=== PATIENT | female | born 1965 | race Caucasian/White ===

== ENCOUNTER → 2018-06-19 10:11 | Outpatient (CLI) | payer BC, SELFPAY ==
[2018-06-19 12:07] LABS: Alanine Aminotransferase 22 U/L (12-78); Albumin Level 3.9 gm/dL (3.4-5.0); Alkaline Phosphatase 66 U/L (46-116); Anion Gap 14.5 mEq/L (5-15); Aspartate Amino Transferase 10 U/L (15-37); Bilirubin,Direct 0.1 mg/dL (0.0-0.2); Bilirubin,Indirect 0.3 mg/dL (0.0-0.9); Bilirubin,Total 0.4 mg/dL (0.2-1.0); Blood Urea Nitrogen 16 mg/dL (7-18); Calcium 9.1 mg/dL (8.5-10.1); Carbon Dioxide 27 mmol/L (21.0-32.0); Chloride 106 mmol/L (98-107); Chol/HDL Ratio 3.5 (1-3.5); Cholesterol 216 mg/dL (140-200); Creatinine,Serum 0.84 mg/dL (0.55-1.02); Estimated Glomerular Filt Rate 71 ml/min (>60); GFR (African American) 86 ML/MIN (>60); Glucose 127 mg/dL (74-106); HDL Cholesterol 61 mg/dL (29-89); LDL Cholesterol 129 mg/dL (0-130); Potassium 4.5 mmoL/L (3.5-5.1); Sodium 143 mmol/L (136-145); Total Protein,Serum 6.6 gm/dL (6.4-8.2); Triglycerides 132 mg/dL (30-200); VLDL Cholesterol 26 mg/dL (0-40)
== END ==
PROVIDERS: PCP Emergency Medicine; Visit Provider Physician Assistant
DX: E78.5 Hyperlipidemia, unspecified (principal); E11.9 Type 2 diabetes mellitus without complications; F17.200 Nicotine dependence, unspecified, uncomplicated; I10 Essential (primary) hypertension; R60.9 Edema, unspecified; R94.31 Abnormal electrocardiogram [ECG] [EKG]
CPT/HCPCS: 36415; 80048; 80061; 80076

== ENCOUNTER → 2018-12-25 09:19 | Outpatient (CLI) | payer BC, SELFPAY ==
[2018-12-25 11:07] LABS: Alanine Aminotransferase 27 U/L (12-78); Albumin Level 3.9 gm/dL (3.4-5.0); Alkaline Phosphatase 75 U/L (46-116); Aspartate Amino Transferase 8 U/L (15-37); Bilirubin,Direct 0.1 mg/dL (0.0-0.2); Bilirubin,Indirect 0.3 mg/dL (0.0-0.9); Bilirubin,Total 0.4 mg/dL (0.2-1.0); Chol/HDL Ratio 2.8 (1-3.5); Cholesterol 160 mg/dL (140-200); HDL Cholesterol 58 mg/dL (29-89); LDL Cholesterol 83 mg/dL (0-130); Total Protein,Serum 6.6 gm/dL (6.4-8.2); Triglycerides 95 mg/dL (30-200); VLDL Cholesterol 19 mg/dL (0-40)
== END ==
PROVIDERS: Visit Provider Urology
DX: E11.9 Type 2 diabetes mellitus without complications (principal); E78.49 Other hyperlipidemia; I10 Essential (primary) hypertension; R60.9 Edema, unspecified; F17.200 Nicotine dependence, unspecified, uncomplicated
CPT/HCPCS: 36415; 80061; 80076

== ENCOUNTER → 2020-05-12 15:44 | Outpatient (CLI) | payer BC, SELFPAY ==
[2020-05-17 10:34] LABS: Covid-19 Nasal PCR Sendout Lex NOT DETECTED
== END ==
PROVIDERS: PCP Emergency Medicine; Visit Provider Nurse Practitioner Family
DX: Z03.818 Encounter for observation for suspected exposure to other biological agents ruled out (principal)
CPT/HCPCS: U0004

== ENCOUNTER → 2020-09-29 08:46 | Outpatient (CLI) | payer BC, SELFPAY ==
--- NOTE | 2020-09-29 09:05 | CA_ITS ---
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 2D Dimensions LVDd 5.36 cm LVEF (Visual) 67.00 % LVDs 3.35 cm Aortic Root 2.42 cm Left Atrium 3.56 cm LVOT 1.67 cm (M/F) 1.5-2.5 M-Mode Dimensions RVDd 2.15 cm (0.9-2.6) LA Diam 3.33 cm (1.9-4.0) LVDd 5.23 cm (3.5-5.7) Ao Diam 2.89 cm (2.0-3.7) IVSd 0.80 cm (0.6-1.1) PWd 0.80 cm (0.6-1.1) EPSs 0.67 cm EDV (Teich) 131.20 mL TAPSE 2.13 (<1.7) LV Diastology E Decel Time 160.00 (160-240 msec) E/A Ratio 0.88 MED E' 6.60 (< 7 cm/sec) MED A' 8.60 cm/s E'/MED E' Ratio 9.94 (>14) LAT E' 9.20 (<10 cm/sec) LAT A' 10.00 cm/s E/LAT E' Ratio 7.13 (>14) Aortic Valve AO Peak GR. 5.70 mmHg Mitral Valve MV E Max Darnell. 66.00 (40-130 cm/s) MV A Velocity 75.00 (40-130 cm/s) E/A Ratio 0.88 MV Decel. Time 160.00 (160-240 ms) MV PHT 47.00 ms Pulmonary Valve PV Peak Velocity 85.00 (50-150 cm/s) Tricuspid Valve TR P. Velocity 223.00 cm/s RAP Estimate 10.00 mmHg RVSP 29.90 mmHg Left Ventricle Left atrium is mildly enlarged, left ventricle is normal size, mild concentric left ventricular hypertrophy, visually estimated ejection fraction 55% with no regional wall motion abnormality, grade 1 diastolic dysfunction seen without tissue Doppler evidence of raise left atrial pressure. Right Ventricle Right atrium and right ventricle are normal size and contractility. Aortic Valve Aortic valve is minimally thickened and fibrosed, there is no aortic stenosis or aortic insufficiency. Mitral Valve Mitral valve is grossly normal, there is trace mitral regurgitation. Tricuspid Valve Tricuspid is grossly normal, there is trace tricuspid regurgitation, tricuspid regurgitation jet velocity is inadequate for calculation of the right ventricular systolic pressure. Pulmonic Valve Pulmonic valve is poorly visualized. Great Vessels Aortic root is normal size. Pericardium No significant pericardial effusion noted. Conclusion 1. Mildly enlarged left atrium, normal left ventricular size, mild concentric left ventricular hypertrophy, visually estimated ejection fraction 55% with no regional wall motion abnormality, grade 1 diastolic dysfunction seen without tissue Doppler evidence of raise left atrial pressure. 2. Trace mitral and tricuspid regurgitation. 3. No significant pericardial effusion. Electronically signed by : Unruly Hearn, 09/30/2020 16:40:24
[2020-09-29 10:14] LABS: Alanine Aminotransferase 18 U/L (12-78); Aspartate Amino Transferase 21 U/L (14-36); Bilirubin,Unconjugated 0.3 mg/dL (0.0-1.1)
[2020-09-29 10:15] LABS: Albumin Level 4.4 g/dl (3.5-5.0); Alkaline Phosphatase 70 U/L (38-126); Bilirubin,Direct 0.2 mg/dl (0.0-0.4); Bilirubin,Indirect 0.3 mg/dL (0.0-0.9); Bilirubin,Total 0.5 mg/dl (0.2-1.3); Chol/HDL Ratio 2.9 (1-3.5); Cholesterol 231 mg/dl (140-200); HDL Cholesterol 79 mg/dl (40-60); Triglycerides 130 mg/dl (30-150); VLDL Cholesterol 26 mg/dL (0-40)
== END ==
PROVIDERS: PCP Emergency Medicine; Visit Provider Nurse Practitioner Family
DX: I10 Essential (primary) hypertension (principal); E78.2 Mixed hyperlipidemia; R60.0 Localized edema; F17.200 Nicotine dependence, unspecified, uncomplicated
CPT/HCPCS: 80061; 80076; 93306

== ENCOUNTER → 2020-11-03 12:29 | Outpatient (CLI) | payer BC, SELFPAY ==
--- NOTE | 2020-11-03 12:32 | XR_ITS ---
PROCEDURE: XR HIP RT 2-3V W/PELVIS CLINICAL INDICATION: right hip pain Left hip pain COMPARISON: CR XR HIP LT 2-3V W/PELVIS from 11/03/2020 FINDINGS: No fracture or dislocation. No lytic or blastic change. There is slight decrease in the hip joint space on both sides suggesting minimal osteoarthritic change. No significant osteosclerosis or osteophyte formation. There are degenerative changes in the lower lumbar spine. Unremarkable SI joints IMPRESSION: Minimal osteoarthritic change of the hips Dictated by: Ab Hutton MD 11/03/2020 16:34 Ab Hutton MD in [place] 11/03/2020 16:34
--- NOTE | 2020-11-03 12:32 | XR_ITS ---
PROCEDURE: XR KNEE RT 4V CLINICAL INDICATION: right knee pain COMPARISON: CR [id number] KNEE-3 VIEWS-RT from 08/23/2016 CR [id number] KNEE-4 OR 5 VIEWS-LT from 10/18/2016 FINDINGS: There are severe osteoarthritic changes of the medial compartment and patellofemoral joint which appears worse at the medial compartment. Calcific density is present overlying the soft tissues along the distal femur medially and could represent a loose body within the suprapatellar effusion. There is a small suprapatellar effusion noted. IMPRESSION: Severe osteoarthritis with knee joint effusion and possible loose body. The osteoarthritis appears somewhat worse Dictated by: Ab Hutton MD 11/03/2020 16:44 Ab Hutton MD in [place] 11/03/2020 16:44
--- NOTE | 2020-11-03 12:32 | XR_ITS ---
PROCEDURE: XR KNEE LT 4V CLINICAL INDICATION: left knee pain; weightbearing COMPARISON: CR [id number] KNEE-3 VIEWS-RT from 08/23/2016 CR [id number] KNEE-4 OR 5 VIEWS-LT from 10/18/2016 FINDINGS: No fracture or dislocation. No lytic or blastic change. There is normal mineralization. There are moderate to severe osteoarthritic changes of the medial compartment and patellofemoral joint. There is a suprapatellar effusion. Other findings:None. IMPRESSION: Moderate to severe osteoarthritis with suprapatellar effusion. The osteoarthritis appears worse in the medial compartment compared to the previous exam Dictated by: Ab Hutton MD 11/03/2020 16:45 Ab Hutton MD in [place] 11/03/2020 16:45
== END ==
PROVIDERS: PCP Emergency Medicine; Visit Provider Orthopaedic Surgery
DX: M25.551 Pain in right hip (principal); M25.561 Pain in right knee; M25.552 Pain in left hip; M25.562 Pain in left knee
CPT/HCPCS: 73502; 73564

== ENCOUNTER → 2022-04-10 13:32 | Outpatient (CLI) | payer BC, SELFPAY | PROVIDERS: PCP Emergency Medicine; Visit Provider Emergency Medicine | DX: U07.1 COVID-19 (principal) | CPT/HCPCS: C9803; U0003; U0005 ==

== ENCOUNTER → 2022-05-31 14:18 | Outpatient (CLI) | payer BC, SELFPAY ==
[2022-05-31 19:47] LABS: Amphetamine/Metha Screen,Urine Negative ng/ml (<1000); Barbiturates Screen,Urine Negative ng/ml (<200)
[2022-05-31 19:48] LABS: Benzodiazepines Screen,Urine Negative ng/ml (<200)
[2022-05-31 19:49] LABS: Cannabinoid Screen,Urine Negative ng/ml (<50); Cocaine Screen,Urine Negative ng/ml (<300)
[2022-05-31 19:50] LABS: Methadone Screen,Urine Negative ng/ml (<300)
[2022-05-31 19:51] LABS: Opiate Screen,Urine Negative ng/ml (<300)
[2022-05-31 19:52] LABS: Phencyclidine Screen,Urine Negative ng/ml (<25)
== END ==
PROVIDERS: PCP Emergency Medicine; Visit Provider Emergency Medicine
DX: Z76.0 Encounter for issue of repeat prescription (principal); Z79.899 Other long term (current) drug therapy
CPT/HCPCS: 80305

== ENCOUNTER → 2022-09-27 10:15 | Outpatient (CLI) | payer BC, SELFPAY ==
[2022-09-27 12:40] LABS: Alanine Aminotransferase 14 U/L (12-78); Albumin Level 4.1 g/dl (3.5-5.0); Alkaline Phosphatase 58 U/L (38-126); Aspartate Amino Transferase 17 U/L (14-36); Bilirubin,Direct 0.1 mg/dl (0.0-0.4); Bilirubin,Indirect 0.3 mg/dL (0.0-0.9); Bilirubin,Total 0.4 mg/dl (0.2-1.3); Bilirubin,Unconjugated 0.3 mg/dL (0.0-1.1); Chol/HDL Ratio 3.2 (1-3.5); Cholesterol 193 mg/dl (140-200); HDL Cholesterol 61 mg/dl (40-60); Total Protein,Serum 6.3 g/dl (6.3-8.2); Triglycerides 143 mg/dl (30-150); VLDL Cholesterol 29 mg/dL (0-40)
[2022-09-27 12:52] LABS: Direct LDL Cholesterol 92.17 mg/dL (100-129)
== END ==
PROVIDERS: PCP Emergency Medicine; Visit Provider Nurse Practitioner Family
DX: E78.2 Mixed hyperlipidemia (principal)
CPT/HCPCS: 36415; 80061; 80076

== ENCOUNTER → 2023-05-02 12:02 | Outpatient (CLI) | payer BC, SELFPAY ==
--- NOTE | 2023-05-02 12:05 | XR_ITS ---
FINAL REPORT CLINICAL HISTORY: bilateral knee pain COMPARISON: 11/03/2020 FINDINGS: Left knee Three views were obtained. There is no acute fracture or dislocation. There are moderate and severe degenerative changes with severe medial compartment narrowing. No soft tissue abnormality is identified. IMPRESSION: Degenerative changes as above. Reviewed, Interpreted and Dictated by Cory Cordova III, MD Transcribed by Elaine Chairez Authenticated and [facility]
--- NOTE | 2023-05-02 12:05 | XR_ITS ---
FINAL REPORT CLINICAL HISTORY: Rt Knee pain COMPARISON: 11/03/2020 FINDINGS: Right knee Three views were obtained. There is no acute fracture or dislocation. There are moderate and severe degenerative changes. There is a probable loose body adjacent to the lateral distal femur. Moderate joint effusion is identified. IMPRESSION: Degenerative changes and moderate joint effusion. Probable loose body. Reviewed, Interpreted and Dictated by Cory Cordova III, MD Transcribed by Elaine Chairez Authenticated and [facility]
== END ==
LOC: RAD 12:02
PROVIDERS: PCP Emergency Medicine; Visit Provider Orthopaedic Surgery
DX: M25.562 Pain in left knee (principal); M25.561 Pain in right knee
CPT/HCPCS: 73562

== ENCOUNTER → 2023-05-09 12:37 | Outpatient (CLI) | payer BC, SELFPAY ==
[2023-05-09 13:09] LABS: Basophils # 0.1 K/mm3 (0-0.2); Basophils % 0.7 % (0.1-2.0); Eosinophils # 0.2 K/mm3 (0.0-0.4); Eosinophils % 3.2 % (0.1-12.0); Hematocrit 48.1 % (37.0-47.0); Hemoglobin 15.2 g/dL (12.2-16.2); Lymphocytes # 2.5 K/mm3 (0.7-4.5); Lymphocytes % 35.5 % (10-50); Mean Corpuscular HGB Conc 31.6 g/dL (31.8-35.4); Mean Corpuscular Hemoglobin 29.9 pg (27.0-31.2); Mean Corpuscular Volume 94.7 fl (81-99); Mean Platelet Volume 7.9 fl (7.4-10.4); Monocytes # 0.4 K/mm3 (0.1-1.0); Monocytes % 5.2 % (1.7-9.3); Neutrophils # 3.8 K/mm3 (1.8-7.8); Neutrophils % 55.4 % (37.0-80.0); Platelet Count 270 K/mm3 (142-424); Red Blood Count 5.08 M/mm3 (4.20-5.40); Red Cell Distribution Width 13.2 % (11.5-17.5); White Blood Count 6.9 K/mm3 (4.8-10.8)
[2023-05-09 13:47] LABS: Anion Gap 10.3 mEq/L (5-15); Blood Urea Nitrogen 15 mg/dl (7-17); Calcium 9.2 mg/dl (8.4-10.2); Carbon Dioxide 29 mmol/L (22.0-30.0); Chloride 106 mmol/L (98-107); Estimated Glomerular Filt Rate 57 ml/min (>60); GFR (African American) 69 ML/MIN (>60); Glucose 132 mg/dl (74-100); Potassium 4.3 mmoL/L (3.5-5.1); Sodium 141 mmol/L (136-145)
[2023-05-09 14:07] LABS: Free T4 (Free Thyroxine) 1.21 ng/dl (0.78-2.19)
[2023-05-09 14:22] LABS: Thyroid Stimulating Hormone 1.41 uIU/mL (0.465-4.68)
[2023-05-09 18:37] LABS: Hemoglobin A1C 5.6 % (4.0-6.0)
== END ==
PROVIDERS: PCP Emergency Medicine; Visit Provider Emergency Medicine
DX: E11.9 Type 2 diabetes mellitus without complications (principal); R53.83 Other fatigue; K59.00 Constipation, unspecified
CPT/HCPCS: 80048; 83036; 84439; 84443; 85025

== ENCOUNTER → 2023-08-22 23:12 | Outpatient (CLI) | payer BC, SELFPAY ==
[2023-08-22 20:06] LABS: Amphetamine/Metha Screen,Urine Negative ng/ml (<1000)
[2023-08-22 20:07] LABS: Barbiturates Screen,Urine Negative ng/ml (<200)
[2023-08-22 20:08] LABS: Benzodiazepines Screen,Urine Negative ng/ml (<200)
[2023-08-22 20:09] LABS: Cannabinoid Screen,Urine Negative ng/ml (<50)
[2023-08-22 20:10] LABS: Cocaine Screen,Urine Negative ng/ml (<300); Methadone Screen,Urine Negative ng/ml (<300)
[2023-08-22 20:11] LABS: Opiate Screen,Urine Negative ng/ml (<300)
[2023-08-22 20:12] LABS: Phencyclidine Screen,Urine Negative ng/ml (<25)
[2023-08-29 08:15] LABS: Opiates Negative ng/mL (Cutoff=100)
== END ==
LOC: LAB.DROPOF 23:13
PROVIDERS: PCP Nurse Practitioner Family; Visit Provider Nurse Practitioner Family
DX: M79.2 Neuralgia and neuritis, unspecified (principal); Z79.899 Other long term (current) drug therapy
CPT/HCPCS: 80307; 80361; G0480

== ENCOUNTER 2024-01-23 08:58 | Outpatient (CLI) | payer BC, SELFPAY ==
[2024-01-23 09:35] LABS: Basophils # 0.1 K/mm3 (0-0.2); Basophils % 1.6 % (0.1-2.0); Eosinophils # 0.2 K/mm3 (0.0-0.4); Hematocrit 46.7 % (37.0-47.0); Hemoglobin 14.9 g/dL (12.2-16.2); Lymphocytes # 2.6 K/mm3 (0.7-4.5); Mean Corpuscular HGB Conc 31.9 g/dL (31.8-35.4); Mean Corpuscular Volume 97.2 fl (81-99); Mean Platelet Volume 8.2 fl (7.4-10.4); Monocytes # 0.3 K/mm3 (0.1-1.0); Monocytes % 5.8 % (1.7-9.3); Neutrophils # 2.4 K/mm3 (1.8-7.8); Neutrophils % 42.6 % (37.0-80.0); Platelet Count 246 K/mm3 (142-424); Red Blood Count 4.81 M/mm3 (4.20-5.40); Red Cell Distribution Width 13.3 % (11.5-17.5); White Blood Count 5.6 K/mm3 (4.8-10.8)
[2024-01-23 10:31] LABS: Alanine Aminotransferase 18 U/L (12-78); Albumin Level 4.1 g/dl (3.5-5.0); Alkaline Phosphatase 53 U/L (38-126); Anion Gap 12.1 mEq/L (5-15); Aspartate Amino Transferase 22 U/L (14-36); Bilirubin,Direct 0.1 mg/dl (0.0-0.4); Bilirubin,Indirect 0.4 mg/dL (0.0-0.9); Bilirubin,Total 0.5 mg/dl (0.2-1.3); Bilirubin,Unconjugated 0.4 mg/dL (0.0-1.1); Blood Urea Nitrogen 15 mg/dl (7-17); Calcium 9.8 mg/dl (8.4-10.2); Carbon Dioxide 27 mmol/L (22.0-30.0); Chloride 107 mmol/L (98-107); Chol/HDL Ratio 2.5 (1-3.5); Cholesterol 237 mg/dl (140-200); Estimated Glomerular Filt Rate 74 ml/min (>60); GFR (African American) 89 ML/MIN (>60); Glucose 122 mg/dl (74-100); HDL Cholesterol 93 mg/dl (40-60); Magnesium 1.8 mg/dl (1.6-2.3); Potassium 4.1 mmoL/L (3.5-5.1); Sodium 142 mmol/L (136-145); Total Protein,Serum 6.3 g/dl (6.3-8.2); Triglycerides 120 mg/dl (30-150); VLDL Cholesterol 24 mg/dL (0-40)
[2024-01-23 10:42] LABS: Direct LDL Cholesterol 114.47 mg/dL (100-129)
[2024-01-23 10:46] LABS: Free T4 (Free Thyroxine) 1.03 ng/dl (0.78-2.19)
== END 2024-01-23 23:59 | disposition home or self-care (01) ==
LOC: LAB 08:59
PROVIDERS: Visit Provider Nurse Practitioner Family
DX: I10 Essential (primary) hypertension (principal); E78.5 Hyperlipidemia, unspecified; E11.9 Type 2 diabetes mellitus without complications; F17.200 Nicotine dependence, unspecified, uncomplicated; E66.9 Obesity, unspecified; Z68.35 Body mass index [BMI] 35.0-35.9, adult
CPT/HCPCS: 36415; 80048; 80061; 80076; 83735; 84439; 84443; 85025

== ENCOUNTER 2024-04-02 09:34 | Outpatient (CLI) | payer BC, SELFPAY ==
--- NOTE | 2024-04-02 09:39 | XR_ITS ---
FINAL REPORT CLINICAL HISTORY: knee pain COMPARISON: 11/03/2020 FINDINGS: Right knee Three views were obtained. There is no acute fracture or dislocation. There are moderate and severe degenerative changes, worst in the medial compartment. There is severe medial compartment narrowing. Small joint effusion is identified. Findings are similar to previous. IMPRESSION: Significant degenerative changes with small joint effusion, similar to previous. Reviewed, Interpreted and Dictated by Cory Cordova III, MD Transcribed by Elaine Chairez Authenticated and [facility]
--- NOTE | 2024-04-02 09:39 | XR_ITS ---
FINAL REPORT CLINICAL HISTORY: knee pain COMPARISON: 11/03/2020 FINDINGS: Left knee Three views were obtained. There is no acute fracture or dislocation. There are moderate and severe degenerative changes. There is severe medial compartment narrowing, progressed since previous. Large joint effusion is identified. IMPRESSION: Significant degenerative changes with large joint effusion. Reviewed, Interpreted and Dictated by Cory Cordova III, MD Transcribed by Elaine Chairez Authenticated and . [facility]
== END 2024-04-02 23:59 | disposition home or self-care (01) ==
LOC: RAD 09:36
PROVIDERS: Visit Provider Orthopaedic Surgery
DX: M17.0 Bilateral primary osteoarthritis of knee (principal); M25.562 Pain in left knee
CPT/HCPCS: 73562

== ENCOUNTER 2024-10-22 10:32 | Outpatient (CLI) | payer BC, SELFPAY ==
[2024-10-22 10:47] LABS: Basophils % 0.7 % (0.1-2.0); Eosinophils # 0.1 K/mm3 (0.0-0.4); Eosinophils % 1.6 % (0.1-12.0); Hematocrit 42.5 % (37.0-47.0); Lymphocytes # 2.4 K/mm3 (0.7-4.5); Lymphocytes % 42.1 % (10-50); Mean Corpuscular HGB Conc 32.9 g/dL (31.8-35.4); Mean Corpuscular Hemoglobin 30.4 pg (27.0-31.2); Mean Corpuscular Volume 92.2 fl (81-99); Mean Platelet Volume 9.4 fl (7.4-10.4); Monocytes # 0.5 K/mm3 (0.1-1.0); Monocytes % 7.9 % (1.7-9.3); Neutrophils # 2.7 K/mm3 (1.8-7.8); Neutrophils % 47.4 % (37.0-80.0); Platelet Count 331 K/mm3 (142-424); Red Blood Count 4.61 M/mm3 (4.20-5.40); Red Cell Distribution Width 12.1 % (11.5-17.5); White Blood Count 5.7 K/mm3 (4.8-10.8)
[2024-10-22 12:04] LABS: Alanine Aminotransferase 23 U/L (12-78); Albumin Level 4.3 g/dl (3.5-5.0); Alkaline Phosphatase 64 U/L (38-126); Anion Gap 7.5 mEq/L (5-15); Aspartate Amino Transferase 22 U/L (14-36); Bilirubin,Direct 0.2 mg/dl (0.0-0.4); Bilirubin,Indirect 0.2 mg/dL (0.0-0.9); Bilirubin,Total 0.4 mg/dl (0.2-1.3); Bilirubin,Unconjugated 0.2 mg/dL (0.0-1.1); Blood Urea Nitrogen 14 mg/dl (7-17); Calcium 9.4 mg/dl (8.4-10.2); Carbon Dioxide 28 mmol/L (22.0-30.0); Chloride 109 mmol/L (98-107); Chol/HDL Ratio 2.7 (1-3.5); Cholesterol 205 mg/dl (140-200); Estimated Glomerular Filt Rate 86 ml/min (>60); GFR (African American) 104 ML/MIN (>60); Glucose 120 mg/dl (74-100); HDL Cholesterol 76 mg/dl (40-60); Potassium 4.5 mmoL/L (3.5-5.1); Sodium 140 mmol/L (136-145); Total Protein,Serum 6.1 g/dl (6.3-8.2); Triglycerides 124 mg/dl (30-150); VLDL Cholesterol 25 mg/dL (0-40)
[2024-10-22 12:15] LABS: Direct LDL Cholesterol 91.44 mg/dL (100-129)
[2024-10-22 12:20] LABS: Free T4 (Free Thyroxine) 1.04 ng/dl (0.78-2.19)
[2024-10-22 12:34] LABS: Thyroid Stimulating Hormone 1.58 uIU/mL (0.465-4.68)
== END 2024-10-22 23:59 | disposition home or self-care (01) ==
LOC: LAB 10:32
PROVIDERS: Visit Provider Nurse Practitioner Family
DX: E78.2 Mixed hyperlipidemia (principal); I10 Essential (primary) hypertension; E11.9 Type 2 diabetes mellitus without complications
CPT/HCPCS: 36415; 80048; 80061; 80076; 84439; 84443; 85025